=== PATIENT | female | born 1980 | race Caucasian/White ===

== ENCOUNTER 2022-12-06 15:03 | Outpatient (CLI) | payer OTHER, SELFPAY ==
[2022-12-06 18:05] LABS: TSH With Reflex to FT4* 0.821 uIU/mL (0.270-4.200)
== END 2022-12-06 15:04 | disposition home or self-care (01) ==
LOC: NFLDREF 15:04
PROVIDERS: PCP Emergency Medicine; Visit Provider Physician Assistant
DX: N93.8 Other specified abnormal uterine and vaginal bleeding (principal)
CPT/HCPCS: 84443

== ENCOUNTER 2022-12-08 14:53 | Outpatient (CLI) | payer OTHER, SELFPAY ==
--- NOTE | 2022-12-08 15:00 | CRLHL7_ITS ---
For Patients: As a result of the Century Cures Act, medical imaging exams and procedure reports are released immediately into your electronic medical record. You may view this report before your referring provider. If you have questions, please contact your health care provider. INDICATION: heavy and irregular bleeding COMPARISON: none TECHNIQUE: 2D vo scale and color Doppler images were acquired of the pelvis using a transabdominal and transvaginal approach. FINDINGS: Sonographic images demonstrate a normal size and smooth outer contour of the uterus. Uterus measures 7.7 cm in length by 4.4 cm in AP diameter by 5.7 cm in transverse dimension. The myometrium has a heterogeneous echotexture. There are 2 intramural leiomyomas with heterogeneously hypoechoic internal echotexture measuring 1.3 x 1.2 x 1.3 cm and 0.9 x 0.7 x 0.7 cm. The endometrial lining appears normal and measures 6 mm in composite thickness. The right ovary measures 3.3 x 1.8 x 2.6 cm in size and the left ovary measures 3.1 x 1.5 x 2.1 cm. The ovaries demonstrate normal arterial and venous blood flow on color Doppler analysis. There are no suspicious fluid collections within the cul-de-sac. IMPRESSION: Intramural fibroids measuring up to 1.3 cm. Endometrial thickness 6 millimeters. No endometrial fluid. Dictated by Torey Garcia MD @ 12/09/2022 9:24:51 AM (Electronically Signed)
== END 2022-12-08 14:54 | disposition home or self-care (01) ==
LOC: US 14:54
PROVIDERS: PCP Emergency Medicine; Visit Provider Physician Assistant
DX: N93.8 Other specified abnormal uterine and vaginal bleeding (principal); D25.1 Intramural leiomyoma of uterus; R93.89 Abnormal findings on diagnostic imaging of other specified body structures
CPT/HCPCS: 76830; 76856; 80048; 80061

== ENCOUNTER 2022-12-22 11:58 | Outpatient (CLI) | payer BC, OTHER, SELFPAY ==
--- NOTE | 2022-12-22 11:30 | CRLHL7_ITS ---
For Patients: As a result of the Century Cures Act, medical imaging exams and procedure reports are released immediately into your electronic medical record. You may view this report before your referring provider. If you have questions, please contact your health care provider. BILATERAL SCREENING MAMMOGRAM WITH COMPUTER-AIDED DETECTION TECHNIQUE: CC and MLO views were obtained. These mammographic images have been obtained using full-field digital technique. These mammographic images were interpreted with the benefit of computer-aided detection. COMPARISON FILM: Baseline. FINDINGS: There are scattered areas of fibroglandular density IMPRESSION: There is no radiographic evidence for malignancy. ASSESSMENT: BI-RADS Category 1: Negative RECOMMENDATION: Routine screening mammogram in 1 year. A lay language report of this examination will be provided to the patient. Torey Garcia M.D. Diagnostic Radiologist [email or web address] PAIGE/thu Transcribed: 1:54 p.mDesean andino/Dictated by: Torey Garcia MD @ 12/23/2022 10:13:00 AM (Electronically Signed)
== END 2022-12-22 11:59 | disposition home or self-care (01) ==
LOC: MAMMO 11:59
PROVIDERS: PCP Emergency Medicine; Visit Provider Emergency Medicine
DX: Z12.31 Encounter for screening mammogram for malignant neoplasm of breast (principal)
CPT/HCPCS: 77067

== ENCOUNTER 2023-05-23 18:10 | Emergency (ER) | payer OTHER, SELFPAY ==
[2023-05-23 18:22] VITALS: BP 143/98; PULSE 84; RESP 20; O2SAT 99; BMI 33.3
[2023-05-23 18:23] LABS: Appearance Urine Slightly Cloudy (Clear); Bilirubin Urine Negative (Negative); Blood Urine 3+ (Negative); Color Urine Dark yellow (Yellow); Glucose Urine Negative (Negative); Ketones Urine Negative (Negative); Leukocyte Esterase Urine Negative (Negative); Nitrite Urine Negative (Negative); Protein Urine 1+ (Negative); Specific Gravity Urine >= 1.030 (1.000-1.030); Urobilinogen Urine 0.2 (0.2-1.0); pH Urine 5.5 (5.0-8.5)
[2023-05-23 18:31] LABS: Bacteria Urine Few; RBC Urine 0-2 (0-2); Squamous Epithelial Cell Urine Moderate (None-Few)
--- NOTE | 2023-05-23 18:32 | CRLHL7_ITS ---
For Patients: As a result of the Century Cures Act, medical imaging exams and procedure reports are released immediately into your electronic medical record. You may view this report before your referring provider. If you have questions, please contact your health care provider. INDICATIONS: Suprapubic pain. Status post IUD placement. COMPARISON: 12/08/2022. Technique: Transvaginal pelvic ultrasound was performed. Findings. The uterus measures 8.7 x 4.4 x 4.4 cm. There are 2 fibroids seen in the myometrial of the uterus posteriorly measuring 1.6 x 1.3 x 1.4 cm and 1.3 x 0.7 x 1.2 cm. The endometrial stripe is not thickened measuring 0.6 cm. There is an IUD in the endometrial canal. The right ovary measures 4.1 x 2.9 x 3.6 cm. There is a simple 3.7 x 2.7 x 3.0 cm cyst in the right ovary. Arterial and venous Doppler waveforms are identified in the right ovary. The left ovary is not visualized secondary to overlying bowel gas. There is no free fluid in the pelvis. IMPRESSION: 1. 3.7 x 2.7 x 3.0 cm simple cyst right ovary new from the previous the study. Recommend followup ultrasound in 6 weeks. 2. IUD in the endometrial canal. 3. Uterine fibroids. Dictated by Lukas Moise MD @ 05/23/2023 8:17:18 PM (Electronically Signed)
--- NOTE | 2023-05-23 18:54 | ED_ITS ---
HPI - General Adult General Chief complaint: Unspecified Complaint, Adult Stated complaint: Sudden pelvic pain Time Seen by Provider: 05/23/23 18:20 Source: patient Mode of arrival: ambulatory Limitations: no limitations History of Present Illness HPI narrative: 42-year-old female coming in today complaining of suprapubic discomfort that is been going on for 1 month. Pain comes and goes and when it comes it is a 10/10. She states that it all started after she had her IUD placed. She can go a day or 2 without any discomfort and then she has days when the pain lasts all day long on and off. She denies any changes in her appetite, no fevers or chills, no diarrhea or constipation. She does have increased urinary frequency without urgency or incontinence. She has no vaginal discharge but she has had spotting x2 in the last month for several days, today included. The pain is located in the center of the abdomen, suprapubic does not radiate from side to side. Nothing she does seems to make it better or worse. Related Data Home Medications Medication Instructions Recorded Confirmed cetirizine 10 mg tablet 10 mg PO DAILY 11/24/22 04/27/23 cyclobenzaprine 10 mg tablet 10 mg PO .Bedtime as needed PRN 11/24/22 04/27/23 ketoconazole 2 % topical cream 1 applic topical QAM 11/24/22 04/27/23 meloxicam 15 mg tablet mg PO PRN 11/24/22 04/27/23 mometasone 50 mcg/actuation nasal 1 spray intranasal DAILY 11/24/22 04/27/23 spray tretinoin 0.025 % topical cream 1 applic topical .Bedtime 11/24/22 04/27/23 triamcinolone acetonide 0.025 % 1 applic topical BID 11/24/22 04/27/23 topical cream triamcinolone acetonide 0.5 % 1 applic topical BID 11/24/22 04/27/23 topical cream levonorgestrel 21 mcg/24 hours (8 1 device intrauterine ONCE 04/27/23 04/27/23 yrs) 52 mg intrauterine device Menstrual Cycle regulation (Mirena) Previous Rx's Medication Instructions Recorded albuterol sulfate 90 mcg/actuation 2 puff inhalation Q6H PRN 07/21/22 aerosol inhaler shortness of breath or wheezing #8.5 grams montelukast 10 mg tablet 10 mg PO QDAY #90 tabs 11/24/22 peg 3350-electrolytes 236 240 ml PO Q10M #4,000 mL 11/26/22 gram-22.74 gram-6.74 gram-5.86 gram solution (Golytely) prednisone 20 mg tablet 60 mg (3 x 20 mg) PO QDAY #14 tabs 12/08/22 sumatriptan succinate 100 mg tablet See Rx Instructions PO .COMPLEX #9 12/08/22 tabs Allergies Allergy/AdvReac Type Severity Reaction Status Date / Time azithromycin Allergy Intermediate Abdominal Verified 04/27/23 09:33 Pain Dust mites Allergy Mild skin Uncoded 04/27/23 09:33 testing Grass Allergy Mild skin Uncoded 04/27/23 09:33 testing Pollen Allergy Mild skin Uncoded 04/27/23 09:33 testing Review of Systems Status of ROS: Reports: 10 or more systems reviewed and unremarkable except as noted in History and below [facility] Medical History Ventricular premature beats ?I49.3 - Ventricular premature depolarization (ICD-10) Pre-op exam ?Z01.818 - Encounter for other preprocedural examination (ICD-10) Radicular pain ?M54.10 - Radiculopathy, site unspecified (ICD-10) Smoking 1/2 pack a day or less ?F17.210 - Nicotine dependence, cigarettes, uncomplicated (ICD-10) Family history of colon cancer ?Z80.0 - Family history of malignant neoplasm of digestive organs (ICD-10) Psoriatic arthritis ?L40.50 - Arthropathic psoriasis, unspecified (ICD-10) Hyperlipidemia ?E78.5 - Hyperlipidemia, unspecified (ICD-10) History of vitamin D deficiency ?Z86.39 - Personal history of other endocrine, nutritional and metabolic disease (ICD-10) History of nocturia ?Z87.898 - Personal history of other specified conditions (ICD-10) Surgical History Status post myringotomy with tube placement of both ears ?Z96.22 - Myringotomy tube(s) status (ICD-10) History of lumbar surgery (2011) ?Z98.890 - Other specified postprocedural states (ICD-10) History of carpal tunnel release of both wrists (2018) ?Z98.890 - Other specified postprocedural states (ICD-10) Family History Mother Colon cancer, Onset Age: 47 Maternal Grandmother Breast cancer Maternal Grandfather Prostate cancer Paternal Grandmother Type 2 diabetes mellitus Father High cholesterol Pulmonary fibrosis Sister Diabetes Social History Narrative: , no kids, lesbian, smoker, no EtOH, hicks Smoking Status: Current every day smoker What tobacco products do you use: cigarettes Smoking packs per day: 0.5 Smoking cigarettes per day: 10.0 Years smoked: 22 Smoking pack-years: 11.00 Do you use any of these nicotine containing products: None How often do you have a drink containing alcohol: never How often do you have six or more drinks on one occasion: Never AUDIT-C Alcohol total score: 0 Non-prescribed substance use: denies use Caffeine: No Little interest or pleasure in doing things: not at all Feeling down, depressed, or hopeless: several days Are you using contraception or practicing any form of control: No Exam Narrative: Exam Narrative: Well-nourished well-developed patient in no acute distress. Alert and oriented. Answers questions appropriately. Mood and affect are appropriate. Thoughts are goal oriented and rational. No tangential or magical thinking noted. Patient speaks in full sentences without needing to catch her breath. HEENT: Normocephalic atraumatic. Pupils are equally round reactive to light. Extraocular muscles are intact. Conjunctivae are moist without any icterus noted. Moist mucous membranes. Cardiovascular: Heart is regular rate and rhythm . Lungs: Clear to auscultation bilaterally. Patient takes deep breaths without any discomfort. Abdomen: Soft and nontender nondistended with normal bowel sounds. No guarding or rebound. No masses or organomegaly appreciated. I cannot reproduce her discomfort. No flank pain. Extremities: Bilateral lower extremities are without edema. Normal DP and PT pulses. Skin: Well perfused without any obvious rashes. Const: Vital Signs, click to edit/add: Vital Signs - 24 hr 05/23/23 18:22 Pulse Rate [Pulse Oximeter] 84 Respiratory Rate 20 Blood Pressure [Ri ght Upper Arm] 143/98 H Pulse Oximetry 99 Oxygen Delivery Me thod Room Air Course Course Hospital Course: Workup today was unremarkable. No evidence of infection or inflammation. Do not see evidence of a UTI at this time she does have blood in her urine but she is currently spotting. Ultrasound shows a right-sided cyst with no evidence of torsion, IUD in the appropriate location. Did consult with Dr. San who did not feel that the cyst was big enough to cause intermittent torsion. Vital Signs Vital signs: Initial Vital Signs Pulse Rate 84 05/23/23 18:22 Pulse Rhythm Regular 05/23/23 18:22 Respiratory Rate 20 05/23/23 18:22 Blood Pressure 143/98 H 05/23/23 18:22 Blood Pressure Mean 113 H 05/23/23 18:22 Blood Pressure Position Sitting 05/23/23 18:22 Pulse Oximetry 99 05/23/23 18:22 Oxygen Delivery Method Room Air 05/23/23 18:22 Vital Signs Pulse Rate 84 05/23/23 18:22 Respiratory Rate 20 05/23/23 18:22 Blood Pressure 143/98 H 05/23/23 18:22 Pulse Oximetry 99 05/23/23 18:22 Oxygen Delivery Method Room Air 05/23/23 18:22 Pulse Rate 84 05/23/23 18:22 Respiratory Rate 20 05/23/23 18:22 Blood Pressure 143/98 H 05/23/23 18:22 Pulse Oximetry 99 05/23/23 18:22 Oxygen Delivery Method Room Air 05/23/23 18:22 Medical Decision Making MDM Narrative Medical decision making narrative: 42-year-old female with pelvic pain unclear etiology. We did discuss removing the IUD, patient states she would like to give another few weeks before she does that. I recommend she follow up with her OBGYN for further management. She was in agreement and had no other questions. Lab Data Labs: Lab Results 05/23/23 05/23/23 Range/Units 18:15 19:25 WBC 12.08 H (4.50-11.00) K/uL RBC 4.88 (4.00-5.20) m/uL Hgb 14.1 (12.0-16.0) gm/dL Hct 42.4 (33.0-51.0) % MCV 87 (80-100) fL MCH 29 (26-34) pg MCHC 33 (32-36) gm/dL RDW Coeff of Ericka 14.0 (11.5-15.5) % Plt Count 333 (140-440) K/uL Neut % (Auto) 62.4 (42.0-72.0) % Lymph % (Auto) 29.1 (20-44) % Hancock % (Auto) 5.9 (0.0-11.0) % Eos % (Auto) 2.2 (0.0-7.0) % Baso % (Auto) 0.2 (0.0-3.0) % Neut # (Auto) 7.50 H (1.7-7.0) K/uL Lymph # (Auto) 3.50 H (0.90-2.90) K/uL Hancock # (Auto) 0.70 (0.00-0.90) K/UL Eos # (Auto) 0.30 (0.00-0.50) K/uL Baso # (Auto) 0.00 (0.00-0.30) K/uL ESR < 2 L (2-20) mm/hr Sodium 136 (135-149) mmol/L Potassium 4.2 (3.6-5.1) mmol/L Chloride 106 (96-114) mmol/L Carbon Dioxide 22 (20-32) mmol/L BUN 18 (5-24) mg/dL Creatinine 0.7 (0.5-1.5) mg/dL Estimated Creat Clear 96.13 Estimated GFR 112 ml/min Glucose 86 (60-115) mg/dL Lactate 0.6 (0.5-1.9) mmol/L Calcium 9.2 (8.4-10.6) mg/dL Total Bilirubin 0.8 (0.1-1.5) mg/dL Direct Bilirubin 0.1 (0.0-0.5) mg/dL AST 24 (12-35) U/L ALT 16 (4-35) U/L Alkaline Phosphatase 67 (40-150) U/L C-Reactive Protein 0.6 (0.5-1.0) mg/dL Total Protein 7.3 (6.0-8.3) g/dL Albumin 4.4 (3.3-5.0) g/dL Lipase 88 (23-300) U/L Urine Color Dark yellow (Yellow) Urine Appearance Slightly Cloudy A (Clear) Urine pH 5.5 (5.0-8.5) Ur Specific Baxter >= 1.030 (1.000-1.030) Urine Protein 1+ A (Negative) Urine Glucose (UA) Negative (Negative) Urine Ketones Negative (Negative) Urine Blood 3+ A (Negative) Urine Nitrite Negative (Negative) Urine Bilirubin Negative (Negative) Urine Urobilinogen 0.2 (0.2-1.0) Ur Leukocyte Esterase Negative (Negative) Urine RBC 0-2 (0-2) Urine WBC 2-5 (0-5) Ur Squamous Epith Cells Moderate A (None-Few) Urine Bacteria Few A (None) Imaging Data US - abdomen: Attestation: I have reviewed the pertinent imaging results. Radiologist's impression: Transvaginal pelvic ultrasound was performed. Findings. The uterus measures 8.7 x 4.4 x 4.4 cm. There are 2 fibroids seen in the myometrial of the uterus posteriorly measuring 1.6 x 1.3 x 1.4 cm and 1.3 x 0.7 x 1.2 cm. The endometrial stripe is not thickened measuring 0.6 cm. There is an IUD in the endometrial canal. The right ovary measures 4.1 x 2.9 x 3.6 cm. There is a simple 3.7 x 2.7 x 3.0 cm cyst in the right ovary. Arterial and venous Doppler waveforms are identified in the right ovary. The left ovary is not visualized secondary to overlying bowel gas. There is no free fluid in the pelvis. IMPRESSION: 1. 3.7 x 2.7 x 3.0 cm simple cyst right ovary new from the previous the study. Recommend followup ultrasound in 6 weeks. 2. IUD in the endometrial canal. 3. Uterine fibroids. Discharge Plan Discharge Clinical Impression: Pelvic pain Patient Disposition: Home, Self-Care Condition: Stable Additional Instructions: Follow-up with your OBGYN if symptoms do not resolve. Prescriptions: No Action sumatriptan succinate 100 mg tablet See Rx Instructions PO .COMPLEX Qty: 9 0RF Rx Instructions: take 1 tab at onset of headache; if no relief, may repeat 1 tab after at least 2 hrs; max = 2 tabs/24 hrs PO prednisone 20 mg tablet 60 mg PO QDAY Qty: 14 0RF Rx Instructions: take 3 tab daily x 2days and then 2 tab daily x 4 days Mirena 21 mcg/24 hours (8 yrs) 52 mg intrauterine device 1 device intrauterine ONCE Rx Instructions: as a single dose albuterol sulfate 90 mcg/actuation HFA aerosol inhaler 2 puff inhalation Q6H PRN (Reason: shortness of breath or wheezing) Qty: 8.5 0RF tretinoin 0.025 % cream 1 applic topical .Bedtime triamcinolone acetonide 0.025 % cream 1 applic topical BID Rx Instructions: APPLY SPARINGLY TO AFFECTED AREA when the itching flares. ketoconazole 2 % cream 1 applic topical QAM cyclobenzaprine 10 mg tablet 10 mg PO .Bedtime as needed PRN meloxicam 15 mg tablet PO PRN cetirizine 10 mg tablet 10 mg PO DAILY triamcinolone acetonide 0.5 % cream 1 applic topical BID mometasone 50 mcg/actuation spray,non-aerosol 1 spray intranasal DAILY montelukast 10 mg tablet 10 mg PO QDAY Qty: 90 3RF peg 3350-electrolytes [Golytely] 236-22.74-6.74 -5.86 gram recon soln 240 ml PO Q10M Qty: 4000 0RF Hold Instructions: Doctor's Order Rx Instructions: until fecal effluent is clear Follow Up/Referrals: Karolina Faust MD [Primary Care Provider] - Stand Alone Forms: [facility] Info Instructions
[2023-05-23 19:30] LABS: Lactate* 0.6 mmol/L (0.5-1.9)
[2023-05-23 19:45] LABS: Basophils Percent Auto 0.2 % (0.0-3.0); Eosinophils Percent Auto 2.2 % (0.0-7.0); Hematocrit 42.4 % (33.0-51.0); Hemoglobin* 14.1 gm/dL (12.0-16.0); Immature Granulocytes Pct Auto 0.2 %; Lymphocytes Percent Auto 29.1 % (20-44); Mean Corpuscular HGB Conc 33 gm/dL (32-36); Mean Corpuscular Hemoglobin 29 pg (26-34); Mean Corpuscular Volume 87 fL (80-100); Monocytes Percent Auto 5.9 % (0.0-11.0); Neutrophils Percent Auto 62.4 % (42.0-72.0); Platelet Count* 333 K/uL (140-440); Red Blood Count 4.88 m/uL (4.00-5.20); Slide Review Reflex No; White Blood Count* 12.08 K/uL (4.50-11.00)
[2023-05-23 20:03] LABS: Albumin* 4.4 g/dL (3.3-5.0); Chloride* 106 mmol/L (96-114); Sodium* 136 mmol/L (135-149)
[2023-05-23 20:04] LABS: Potassium* 4.2 mmol/L (3.6-5.1)
[2023-05-23 20:05] LABS: Creatinine* 0.7 mg/dL (0.5-1.5); Est. Creatinine Clearance* 96.13; Estimated Glomerular Filt Rate 112 ml/min
[2023-05-23 20:06] LABS: Alkaline Phosphatase* 67 U/L (40-150); Aspartate Amino Transferase* 24 U/L (12-35); Bilirubin Direct* 0.1 mg/dL (0.0-0.5); Bilirubin Total* 0.8 mg/dL (0.1-1.5); Blood Urea Nitrogen* 18 mg/dL (5-24); Carbon Dioxide* 22 mmol/L (20-32); Glucose* 86 mg/dL (60-115); Lipase* 88 U/L (23-300); Total Protein* 7.3 g/dL (6.0-8.3)
[2023-05-23 20:07] LABS: Alanine Aminotransferase* 16 U/L (4-35); Calcium* 9.2 mg/dL (8.4-10.6)
[2023-05-23 20:09] LABS: C Reactive Protein* 0.6 mg/dL (0.5-1.0)
[2023-05-23 20:30] LABS: Erythrocyte SedimentationRate* < 2 mm/hr (2-20)
== END 2023-05-23 20:49 | disposition home or self-care (01) ==
PROVIDERS: Emergency Provider Family Medicine; PCP Emergency Medicine
DX: R10.2 Pelvic and perineal pain (principal)
CPT/HCPCS: 36415; 76830; 80048; 80076; 81001; 83605; 83690; 85025; 85651; 86140; 87086; 93976; 99283; 99284

== ENCOUNTER 2023-06-28 14:56 | Outpatient (CLI) | payer OTHER, SELFPAY | END 2023-06-28 14:57 | disposition home or self-care (01) | LOC: FRMREF 14:57 | PROVIDERS: PCP Emergency Medicine; Visit Provider Dermatology | DX: L40.50 Arthropathic psoriasis, unspecified (principal) | CPT/HCPCS: 80048 ==

== ENCOUNTER 2024-02-01 09:07 | Outpatient (CLI) | payer OTHER, SELFPAY | END 2024-02-01 09:08 | disposition home or self-care (01) | LOC: NFLDREF 02-03 12:01 | PROVIDERS: PCP Emergency Medicine; Referring Provider Emergency Medicine; Visit Provider Emergency Medicine | DX: E78.5 Hyperlipidemia, unspecified (principal); R73.01 Impaired fasting glucose | CPT/HCPCS: 80061; 82947 ==

== ENCOUNTER 2024-03-27 08:30 | Outpatient (CLI) | payer OTHER, SELFPAY ==
--- OUTSIDE RECORDS SUMMARY | 2024-03-27 08:32 | XMS_ITS | Clinical Summary ---
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 For routine questions regarding patient records, call [phone] during business hours, M-F 8:00 AM - 5:00 PM Central Time. 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 10/27/2017 Immunizations Name Administration Dates Next Due HepA Adult 02/11/2015 HepB Adult 02/11/2015 MMR 03/09/1994 Td (Adult), adsorbed 03/14/1998 Tdap 02/11/2015,11/21/2014 Family History Medical History Relation Name Comments Coronary artery disease Father kimber [place] a t 74 Hyperlipidemia Father kimber Hypertension Father kimber Learning disorder Father kimber dyslexia Breast cancer Father's Sister hariett Lung cancer Maternal Grandfather helger Dementia Maternal Grandmother katharine Hyperlipidemia Mother johanny Hypertension Mother johanny Rheum arthritis Mother johanny Colon cancer Mother's Sister 1 chandler Rectal cancer Mother's Sister 1 chandler Thyroid disease Mother's Sister 1 chandler Pancreatic cancer Mother's Sister 2 dionne hutchinson g 2017 Leukemia Paternal Grandfather parul Coronary artery disease Paternal Grandmother ashly Diabetes Paternal Grandmother ashly Relation Name Status Comments Father kimber Father's Sister hariett Maternal Grandfather helger Maternal Grandmother katharine Mother johanny Mother's Sister 1 chandler Mother's Sister 2 dionne Paternal Grandfather parul Paternal Grandmother ashly Social History Tobacco Use Types Packs/Day Years Used Date Smoking Tobacco: Never Smokeless Tobacco: Never Alcohol Use Standard Drinks/Week Comments Yes 0 (1 standard drink = 0.6 oz pur e alcohol) 1 glass per month Nutrition Answer Date Recorded Nutrition: EVOO Fat Source Unknown 01/21 Nutrition: Servings of Fruits/Vegetables per Day Not on file 2021 Dental Answer Date Recorded Dental: Regular Dentist Unknown 01/22/20 21 Sex and Gender Information Value Date Recorded Sex Assigned at Female 10/27/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 Gender Identity Female 10/27/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 Sexual Orientation Lesbian or Dye 10/27/2017 4: 19 PM MOTOR POOL CLERK Last Filed Vital Signs Vital Sign Reading Time Taken Comments Blood Pressure 127/90 05/08/2020 5:40 PM CDT Pulse 69 05/08/2020 5:40 PM CDT Temperature 36.3 ??C (97.3 ??F) 05/08/2020 5:40 PM CD T Respiratory Rate 16 03/08/2019 2:39 PM CDT Oxygen Saturation 99% 05/08/2020 5:40 PM CDT Inhaled Oxygen Concentration - - Weight 64.3 kg (141 lb 11.2 oz) 05/08/2020 5:40 PM CDT Height 170.2 cm (5' 7) 03/08/2019 10:4 8 AM CDT Body Mass Index 22.19 03/08/2019 10:48 AM CDT Plan of Treatment Health Maintenance Due Date Last Done Comments HIV Screening 1982 Hepatitis C Screening 1982 Lipid (Cholesterol) Screening 1982 Mammogram 1982 Cervical Cancer Screening 03/01/20192015 (Performed elsewhere) COVID-19 Vaccine ( season) 2023 01/13/2021, 12/16/2020 Influenza Vaccine (#1) 2023 , 09/04/2019, 09/14/2018, Additional history exists Hepatitis B Vaccines (3 of 3 - 19+ 3-dose series) 08/22/2023 06/27/2023, 02/11/2015 Depression Screening (Annual PHQ-2) 11/21/2023 DTaP,Tdap,and Td Vaccines (4 - Td or Tdap) 02/11/2025 02/11/2015, 11/21/2014, 03/14/1998 HPV Vaccines Aged Out No longer eligi ble based on patient's age to complete this topic Pneumococcal vaccine (0-64 years) Aged Out No longer eligible based on patient's age to complete this topic Care Teams Assembler [employer] Relationship Specialty Start Date End Date Elsewhere, Pcp PCP - General Internal Medicine 12/24/21
--- OUTSIDE RECORDS SUMMARY | 2024-03-27 08:32 | XMS_ITS | Clinical Summary ---
Author Name Unknown Organization [facility] Address [address], [place] [address] Care Team Providers Care Gear Setter Name Role Phone Kelli Baker MD Primary Care Provider [phone] Source Comments You are receiving this document as you are listed as the primary care provider,follow-up provider, or the patient has been referred to you for consultation.This is in compliance with the Medicare and[facility] E[facility] Incentive Program,which states Providers who transition their patient to another setting of careor provider of care or refers their patient to another provider of care shouldprovide summary care record for each transition of care or referral. [employer] Allergies Active Allergy Reactions Criticality Noted Date Comments Bee Venom Hives 09/27/2012 Medications Medication Sig Dispensed Refills Start Date End Date Status EPINEPHrine (AUVI-Q) 0.3 MG/0.3ML injection Inject 1 Dose into the muscle as needed. LW Addl Instr:March repeat. Indicated for: Acute Allergic Reaction 1 3 09/07/2008 Active unknown medication Indications: PN: 09/07/2008 Active ondansetron (ZOFRAN-ODT) 4 MG disintegrating tablet Take 1 Tablet (4 mg) by mouth every 8 hours as needed for Nausea. 12 Tablet 05/12/2023 Active Active Problems No known active problems Social History Tobacco Use Types Packs/Day Years Used Date Smoking Tobacco: Never Smokeless Tobacco: Never Tobacco Cessation:Counseling Given: Not Answered Sex and Gender Information Value Date Recorded Sex Assigned at Not on file Gender Identity Not on file Sexual Orientation Not on file Last Filed Vital Signs Vital Sign Reading Time Taken Comments Blood Pressure 135/99 05/12/2023 11:40 AM CDT Pulse 86 05/12/2023 11:40 AM CDT Temperature 36.7 ??C (98.1 ??F) 05/12/2023 11:40 AM C DT Respiratory Rate 16 05/12/2023 11:40 AM CDT Oxygen Saturation 99% 05/12/2023 11:40 AM CDT Inhaled Oxygen Concentration - - Weight 51.7 kg (114 lb) 09/27/2012 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 Height - - Body Mass Index - - Plan of Treatment Health Maintenance Due Date Last Done Comments Cervical Cancer Screening Due 1982 Hep C Screening (Preventive Services) 1982 HIV Screening (Preventive Services) 1998 Adult Preventive Visit 01/22/2000 HepB (1) 2001 COVID-19 Vaccine ( season) 2023 01/13/2021, 12/16/2020 Influenza (Season Ended) 2024 020, 09/04/2019, 09/14/2018, Additional history exists DTaP/Tdap/Td (4 - Tdap) 02/11/2025 02/12/20 15, 11/21/2014, 03/14/1998 Zoster/Shingles (1 of 2) 01/22/2032 HepA Aged Out 02/11/2015 No longer eligi ble based on patient's age to complete this topic HPV Vaccine Aged Out No longer eligi ble based on patient's age to complete this topic Hib Aged Out No longer eligi ble based on patient's age to complete this topic IPV (Polio) Aged Out No longer eligi ble based on patient's age to complete this topic MCV4 Aged Out No longer eligi ble based on patient's age to complete this topic Pneumococcal Aged Out No longer eligi ble based on patient's age to complete this topic Care Teams Gear Setter Relationship Specialty Start Date End Date Kelli Baker MD [address] [place] [id number] PCP - General Family Practice 05/12/23
--- OUTSIDE RECORDS SUMMARY | 2024-03-27 08:32 | XMS_ITS | Referral Summary ---
Author Name Unknown Organization [facility] Address [address] [place] [address] Care Team Providers Care Gear Lapping Machine Operator Name Role Phone Elsewhere, Pcp Primary Care Provider Unavailabl e Source Comments Patient records contain information from all sites at [facility]. For routine questions regarding patient records, call [phone] during business hours, M-F 8:00 AM - 5:00 PM Central Time. 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
--- OUTSIDE RECORDS SUMMARY | 2024-03-27 08:33 | XMS_ITS ---
Author Name Unknown Organization [facility] Address [address] [place] [address] Care Team Providers Care Director Translation Name Role Phone Unavailable Unavailable Unavailable Surgery Details Not on file Complications Check Surgery Details section. Procedure Estimated Blood Loss Check Surgery Details section. Procedure Findings Check Surgery Details section. Procedure Specimens Taken Check Surgery Details section.
--- NOTE | 2024-03-27 08:45 | MM_ITS ---
Patient: ALICIA CELESTE Facility:?[facility] Patient ID:?[id number] Site Patient ID:?[id number] Site :?1980 Study:?XRay-Breast Bilateral 3D W/CAD-03/27/2024 9:25:08 AM Ordering Physician:Karolina Witt Final Report: DIGITAL DIAGNOSTIC BILATERAL MAMMOGRAM USING TOMOSYNTHESIS AND COMPUTER-AIDED DETECTION RIGHT BREAST ULTRASOUND CLINICAL HISTORY: RIGHT breast pain. COMPARISON: 12/22/2022. TECHNIQUE: Digital BILATERAL mammogram in two projections. Tomosynthesis and CAD utilized. Real-time ultrasound imaging of RIGHT breast with imaging documentation. BREAST COMPOSITION: There are areas of scattered fibroglandular density. FINDINGS: 3D CC/MLO BILATERAL mammogram images submitted. No architectural distortion or suspicious mass. No adenopathy or suspicious calcifications. Targeted RIGHT breast ultrasound performed at 6 o`clock 6 cm from the nipple corresponding to the area of focal pain. Normal fibroglandular tissue is present. No fluid collection or mass. No fibrocystic change. IMPRESSION: No suspicious findings. No evidence of malignancy. RECOMMENDATIONS: Routine annual BILATERAL screening mammography. Results and recommendations discussed with the patient. BI-RADS Category 2: Benign A lay language report of this examination will be provided to the patient. Dictated by Torey Garcia MD @ 03/27/2024 9:35:10 AM jj/Dictated by: Torey Garcia MD @ 03/27/2024 9:35:00 AM Signed by:?Torey Garcia MD @03/27/2024 11:10:05 AM (Electronic Signature)
--- NOTE | 2024-03-27 09:15 | US_ITS ---
Patient: ALICIA CELESTE Facility:?[facility] Patient ID:?[id number] Site Patient ID:?[id number] Site :?1980 Study:?US-Breast Right Dr. Garcia to read-03/27/2024 9:31:40 AM Ordering Physician:?Karolina Faust Final Report: PLEASE SEE DIGITAL DIAGNOSTIC BILATERAL MAMMOGRAM PERFORMED SAME DAY CRL:thu andino/Dictated by: Torey Garcia MD @ 03/27/2024 9:35:00 AM Signed by:?Torey Garcia MD @03/27/2024 11:10:06 AM (Electronic Signature)
== END 2024-03-27 08:31 | disposition home or self-care (01) ==
LOC: MAMMO 08:31
PROVIDERS: PCP Emergency Medicine; Visit Provider Emergency Medicine
DX: N64.4 Mastodynia (principal)
CPT/HCPCS: 76642; 77066; G0279

== ENCOUNTER 2024-05-07 13:31 | Outpatient (CLI) | payer OTHER, SELFPAY ==
--- OUTSIDE RECORDS SUMMARY | 2024-05-07 13:33 | XMS_ITS | Clinical Summary ---
Author Organization [facility] Address [address], [place] [address] Care Team Providers Care Sterilizer Operator Name Role Phone Kelli Baker MD Primary Care Provider [phone] Source Comments You are receiving this document as you are listed as the primary care provider,follow-up provider, or the patient has been referred to you for consultation.This is in compliance with the Medicare and[facility] [employer] EHR Incentive Program,which states Providers who transition their patient to another setting of careor provider of care or refers their patient to another provider of care shouldprovide summary care record for each transition of care or referral. [employer] Allergies Active Allergy Reactions Criticality Noted Date Comments Bee Venom Hives 09/27/2012 Medications Medication Sig Dispensed Refills Start Date End Date Status EPINEPHrine (AUVI-Q) 0.3 MG/0.3ML injection Inject 1 Dose into the muscle as needed. LW Addl Instr:May repeat. 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
--- OUTSIDE RECORDS SUMMARY | 2024-05-07 13:33 | XMS_ITS | Clinical Summary ---
Author Organization [facility] Address [address] [place] [address] Care Team Providers Care Negative Cleaner Name Role Phone Elsewhere, Pcp Primary Care Provider Unavailabl e Source Comments Patient records contain information from all sites at [facility]. For routine questions regarding patient records, call [phone] during business hours, M-F 8:00 AM - 5:00 PM Central Time. Record requests for emergency care only can be directed to [phone] at any time.[facility] Allergies Active Allergy Reactions Criticality Noted Date [...] Name Comments Coronary artery disease Father kimber [place] a t 76 Hyperlipidemia Father kimber Hypertension [...] Sex Assigned at Female 10/27/2017 4:19 PM RELIEF WORKER Gender Identity Female 10/27/2017 4:19 PM RELIEF WORKER Sexual Orientation Lesbian or Dye 10/27/2017 4: 19 PM RELIEF WORKER Last Filed Vital Signs Vital Sign Reading [...] Cancer Screening 03/01/20192015 (Performed elsewhere) COVID-19 Vaccine (2022- season) 2023 01/13/2021, 12/16/2020 Influenza Vaccine (#1) [...] age to complete this topic Care Teams Negative Cleaner Relationship Specialty Start Date End Date Elsewhere, Pcp PCP - General Internal Medicine 12/24/21
--- OUTSIDE RECORDS SUMMARY | 2024-05-07 13:34 | XMS_ITS | Referral Summary ---
Author Organization [facility] Address [address] [place] [address] Care Team Providers Care Parachute Marker Name Role Phone Elsewhere, Pcp Primary Care Provider Unavailabl e Source Comments Patient records contain information from all sites at [facility]. For routine questions regarding patient records, call [phone] during business hours, M-F 8:00 AM - 5:00 PM Central Time. Record requests for emergency care only can be directed to [phone] at any time.[facility] Allergies Active Allergy Reactions Criticality Noted Date [...] Sex Assigned at Female 10/27/2017 4:19 PM ANALYST COMPETITIVE INTELLIGENCE Gender Identity Female 10/27/2017 4:19 PM ANALYST COMPETITIVE INTELLIGENCE Sexual Orientation Lesbian or Dye 10/27/2017 4: 19 PM ANALYST COMPETITIVE INTELLIGENCE Last Filed Vital Signs Vital Sign Reading [...] of Treatment Not on file Care Teams Parachute Marker Relationship Specialty Start Date End Date Elsewhere, Pcp PCP - General Internal Medicine 12/24/21
--- OUTSIDE RECORDS SUMMARY | 2024-05-07 13:34 | XMS_ITS ---
Author Organization [facility] Address [address] [place] [address] Care Team Providers Care Naphtha Washing System Operator Name Role Phone Unavailable Unavailable Unavailable Surgery Details Not on file Complications Check Surgery Details section. Procedure Estimated Blood Loss Check Surgery Details section. Procedure Findings Check Surgery Details section. Procedure Specimens Taken Check Surgery Details section.
[2024-05-07 17:36] LABS: Bacterial Vaginosis* POSITIVE (Negative); Candida glab/krus NOT DETECTED (No Detected); Candida species NOT DETECTED (No Detected); Trichomonas vaginalis NOT DETECTED (No Detected)
== END 2024-05-07 13:32 | disposition home or self-care (01) ==
LOC: LAB 13:32
PROVIDERS: PCP Emergency Medicine; Visit Provider Obstetrics & Gynecology
DX: N89.8 Other specified noninflammatory disorders of vagina (principal)
CPT/HCPCS: 81513; 87086; 87481; 87661

== ENCOUNTER 2024-08-06 10:18 | Outpatient (CLI) | payer OTHER, SELFPAY ==
--- OUTSIDE RECORDS SUMMARY | 2024-08-06 10:22 | XMS_ITS | Clinical Summary ---
Author Organization [facility] Address [address] [address] Care Team Providers Care Customer Service Receptionist Name Role Phone Kelli Baker MD Primary Care Provider [phone] Source Comments You are receiving this document as you are listed as the primary care provider,follow-up provider, or the patient has been referred to you for consultation.This is in compliance with the Medicare and[facility] Cent[facility] EHR Incentive Program,which states Providers who transition their patient to another setting of careor provider of care or refers their patient to another provider of care shouldprovide summary care record for each transition of care or referral. 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 Height - - Body Mass Index - - Plan of Treatment Health Maintenance Due Date Last Done Comments Cervical Cancer Screening Due 1980 Hep C Screening (Preventive Services) 1980 Mammogram 1982 HIV Screening (Preventive Services) 1998 Adult Preventive Visit 01/22/2000 HepB (1) 2001 COVID-19 Vaccine ( season) 2024 01/13/2021, 12/16/2020 Influenza (#1) 2024 08/19/2020, 08/21, 09/14/2018, Additional history exists DTaP/Tdap/Td (4 - [...] age to complete this topic Care Teams Customer Service Receptionist Relationship Specialty Start Date End Date Kelli Baker MD [address] [place] [id number] PCP - General Family Practice 05/12/23
--- NOTE | 2024-08-06 11:48 | W.ANESCHARGE ---
Anesthesia Charges Start Date/Time Anesthesia Start Date: 08/06/24 Anesthesia Start Time: 11:23 Stop Date/Time Anesthesia Stop Date: 08/06/24 Anesthesia Stop Time: 11:40
--- NOTE | 2024-08-06 12:06 | W.ANESCHARGE ---
Anesthesia Charges Start Date/Time Anesthesia Start Date: 08/06/24 Anesthesia Start Time: 11:23 Stop Date/Time Anesthesia Stop Date: 08/06/24 Anesthesia Stop Time: 11:46
== END 2024-08-06 10:19 | disposition home or self-care (01) ==
LOC: OP CLINIC 10:20
PROVIDERS: PCP Emergency Medicine; Visit Provider Surgery
DX: Z12.11 Encounter for screening for malignant neoplasm of colon (principal); D12.3 Benign neoplasm of transverse colon; K57.30 Diverticulosis of large intestine without perforation or abscess without bleeding; Z80.0 Family history of malignant neoplasm of digestive organs
CPT/HCPCS: 00811; 00812; 45385; 88305; J2704

== ENCOUNTER 2025-01-07 18:30 | Outpatient (CLI) | payer SELFPAY | END 2025-01-07 18:31 | disposition home or self-care (01) | LOC: LKVREF 18:30 | PROVIDERS: PCP Emergency Medicine; Visit Provider Physician Assistant | DX: J02.9 Acute pharyngitis, unspecified (principal) | CPT/HCPCS: 87070 ==